=== PATIENT | female | born 1990 | race Caucasian/White ===

== ENCOUNTER 2018-07-09 13:49 | Inpatient (IN) | payer BC ==
--- NOTE | 2018-07-10 11:21 | P.HPOB ---
History of Present Illness H&P Date: 07/10/18 Chief Complaint: Post dates requesting induction. This patient is a pleasant 28-year-old 2 para 0 female estimated date of confinement 07/09/2018 estimated gestational age 40 and one sevenths weeks who presents to labor and delivery for requested two-stage induction secondary to unfavorable cervix and postdates. Patient's care has been uncomplicated. Patient's been very uncomfortable and at this time is requesting delivery. She understands her cervix is unfavorable and therefore would require a two-stage induction of labor with increased risks of section but this is what she desires at this time. Review of Systems Gastrointestinal: Reports heartburn Genitourinary: Reports Menstruation: Reports amenorrhea Past Medical History Past Medical History: No Reported History History of Any Multi-Drug Resistant Organisms: None Reported Past Surgical History: No Surgical Hx Reported Past Anesthesia/Blood Transfusion Reactions: No Reported Reaction Past Psychological History: No Psychological Hx Reported Smoking Status: Never smoker Past Alcohol Use History: None Reported Medications and Allergies Home Medications Medication Instructions Recorded Confirmed Type Ibuprofen [Motrin] 800 mg PO Q6HR PRN #20 tab 12/21/15 Rx Allergies Allergy/AdvReac Type Severity Reaction Status Date / Time No Known Allergies Allergy Verified 12/21/15 04:09 Exam - OBG Physical Exam Abdomen: bowel sounds normal, no diffuse tenderness, no bruit present, no guarding noted, no hepatomegaly, no splenomegaly, no mass Vulva: both: normal Vagina: normal moisture, no discharge Cervix: no lesion (Cervix in the office is closed and thick.), no discharge Uterus: enlarged (Fundal height is 39 cm) Results blood work shows she is oh positive, rubella immune, RPR nonreactive, hepatitis B negative, Glucola was normal, group B strep was negative, ultrasounds on June 05 showed the baby to be vertex 5 lbs. 9 oz. at the 56th percentile. She's had normal anatomy ultrasounds. Assessment and Plan Assessment: This is a pleasant 28-year-old 2 para 0 female 40 and one sevenths weeks gestation who presents to labor and delivery for two-stage induction of labor secondary to postdates an unfavorable cervix. Plan is Cervidil placement to soften the cervix and proceed with Pitocin induction tomorrow morning. Patient and I have discussed the induction process, benefits and risks. (1) Postmaturity , 40-42 weeks gestation Status: Acute Code(s): O48.0 - POST-TERM SNOMED Code(s): 24702653
[2018-07-10] MEDS ORDERED: DINOPROSTONE 10 MG INSERT.ER VAGINAL ONE (16:47)
[2018-07-10 18:05] VITALS: BMI 32.4
[2018-07-11] MEDS ORDERED: METHYLERGONOVINE 0.2 MG/ML 1 ML AMP IM PRN (00:36)
[2018-07-11] MEDS ORDERED: TERBUTALINE 1 MG/ML VIAL SQ PRN (00:36)
[2018-07-11] MEDS ORDERED: LIDOCAINE 1% INJ 10MG/ML (20 ML MDV) SQ PRN (00:36)
[2018-07-11] MEDS ORDERED: OXYTOCIN 10 UNIT/ML 1 ML VIAL IM PRN (00:36)
[2018-07-11] MEDS ORDERED: CARBOPROST TROMETHAMINE 250 MCG/ML 1 ML AMP IM PRN (00:36)
[2018-07-11] MEDS ORDERED: OXYTOCIN 20 UNITS/1000 ML NS 1,000 ML IV SCH ×2 (00:36→13:39)
[2018-07-11] MEDS: LACTATED RINGERS 1,000 ML IV SCH ×3 (01:33→08:38)
[2018-07-11 01:53] LABS: Basophils # (A) 0.1 k/uL (0-0.2); Basophils % (A) 1 %; Eosinophils # (A) 0.5 k/uL (0-0.7); Eosinophils % (A) 3 %; HCT 39.3 % (34.0-46.0); HGB 13.2 gm/dL (11.4-16.0); Lymphocytes # (A) 3.1 k/uL (1.0-4.8); Lymphocytes % (A) 19 %; MCH 31.3 pg (25.0-35.0); MCHC 33.5 g/dL (31.0-37.0); MCV 93.3 fL (80.0-100.0); Mean Platelet Volume 8.6; Monocytes # (A) 0.9 k/uL (0-1.0); Monocytes % (A) 5 %; Neutrophils # (A) 11.5 k/uL (1.3-7.7); Neutrophils % (A) 69 %; Platelet Count 244 k/uL (150-450); RBC 4.21 m/uL (3.80-5.40); RDW 13.9 % (11.5-15.5); WBC 16.6 k/uL (3.8-10.6)
[2018-07-11] MEDS: BUTORPHANOL 1 MG/ML 1 ML VIAL IV PRN ×2 (03:45→07:23)
--- NOTE | 2018-07-11 06:36 | P.PN ---
Progress Note - Text Progress Note Date: 07/11/18 Patient has Cervidil placed last evening. She'll spontaneous rupture in the middle the night and regular contractions. This morning she is 3-4 cm dilated and we'll have Pitocin augmentation of labor.
[2018-07-11] MEDS ORDERED: SODIUM CHLORIDE 0.9% 100 ML BAG ONE (08:05)
[2018-07-11] MEDS ORDERED: fentaNYL (PF) 50 MCG/ML 5 ML AMP ONE (08:05)
[2018-07-11] MEDS ORDERED: ROPIVACAINE 5MG/ML 20ML VIAL ONE (08:05)
[2018-07-11] MEDS ORDERED: WITCH HAZEL 1 EACH MED..PAD TOPICAL PRN (13:39)
[2018-07-11] MEDS ORDERED: BENZOCAINE/MENTHOL SPRAY 1 GM/SPRAY AEROSOL TOPICAL PRN (13:39)
[2018-07-11] MEDS ORDERED: SIMETHICONE 80 MG CHEWABLE PO PRN (13:39)
[2018-07-11] MEDS ORDERED: HYDROCORTISONE 2.5% RECTAL CREAM 30 GM TUBE RECTAL PRN (13:39)
[2018-07-11] MEDS ORDERED: diphenhydrAMINE 25 MG CAP PO PRN (13:39)
[2018-07-11] MEDS ORDERED: LANOLIN CREAM 5 GM TUBE TOPICAL PRN (13:39)
[2018-07-11] MEDS ORDERED: BISACODYL 10 MG SUPP RECTAL PRN (13:39)
[2018-07-11] MEDS ORDERED: ZOLPIDEM 5 MG TAB PO PRN (13:39)
[2018-07-11] MEDS ORDERED: diphenhydrAMINE 50 MG/ML 1 ML VIAL IVP PRN (13:39)
[2018-07-11] MEDS ORDERED: ACETAMINOPHEN TAB 325 MG TAB PO PRN (13:39)
[2018-07-11] MEDS: IBUPROFEN 600 MG TAB PO PRN ×2 (14:04→20:18)
[2018-07-11] MEDS: SENNOSIDES-DOCUSATE SODIUM 1 EACH TAB PO SCH ×2 (14:22→20:19)
--- NOTE | 2018-07-11 18:08 | P.PROBDLV ---
Vaginal Delivery Note - . Vaginal Delivery Note: Normal vaginal delivery viable male infant Apgars 8 and 9 delivery time is 1328 hrs. Please see dictated H&P for intimate details of this patient's admission. Brief summary this is a pleasant 28-year-old 2 para 0 female 40-2/7 weeks gestation who is admitted to labor and delivery last evening for two- stage induction of labor secondary to postdates . Cervidil is placed and patient has spontaneous rupture membranes in the evening. Patient's labor progresses and she has Pitocin augmentation of labor. She does get an epidural for pain control. Patient continues to progress and pushes for approximately 1 hour pushes the head to the perineum. At this time is evident there is not adequate for delivery and therefore a midline episiotomy is made. With this done the patient is able to push the head over the perineum. Mouth and nares are bulb suctioned. There is no evidence of a nuchal cord. We then have delivery the anterior and posterior shoulder and rest this 's body. This is a vigorous viable male Apgars are 8 and 9 delivery time is 1328 hrs. After delivery of the the umbilical cord is allowed to quit pulsating then doubly clamped and transected. Placenta spontaneously delivered intact. Estimated blood loss is 150 mL. Inspection of perineum shows a second- degree laceration was repaired with 3-0 Vicryl usual fashion excellent reapproximation is noted. All counts are correct 3. There are no complications. and mother are stable delivery room.
[2018-07-11 20:41] VITALS: RESP 16
--- NOTE | 2018-07-12 06:45 | P.PNOBGVD ---
Subjective - Subjective Patient reports: Reports appetite normal, Reports voiding normally, Reports pain well controlled, Reports ambulating normally : doing well Objective - Latest Vital Signs Latest vital signs: Vital Signs Temp Pulse Resp BP 07/11/18 20:00 98.0 F 76 16 135/85 07/11/18 15:45 98.8 F 85 18 126/77 07/11/18 15:15 98.6 F 82 18 120/71 07/11/18 14:45 98.1 F 90 18 124/82 07/11/18 14:30 91 121/77 07/11/18 14:15 98.2 F 101 H 18 117/55 07/11/18 14:00 97.8 F 92 18 126/58 07/11/18 13:45 97.6 F 93 18 153/70 Intake and Output 07/11/18 07/11/18 07/12/18 14:59 22:59 06:59 Intake Total 23.15 Output Total 150 Balance -126.85 Intake: Intake, IV Titration 23.15 Amount Oxytocin 20 Units/1000 ml 23.15 Ns 1,000 ml @ 1 MILLIUNIT/MIN 3 mls/hr IV .Q24H AKASH Rx#:[id number] Output: Estimated Blood Loss 150 Other: # Voids 1 - Exam Lungs: bilateral: normal Chest: Normal S1, Normal S2 Extremities: Present: normal Abdomen: Present: normal appearance, soft Uterus: Present: normal, firm Assessment and Plan Assessment: day #1. Patient is resting without complaints wishes to go home. Vital signs are stable she is afebrile. Uterus is firm nontender and she is having normal lochia. My impression that this is a normal course. Plan is to continue routine care discharge home later today. (1) Postmaturity , 40-42 weeks gestation Current Visit: No Status: Acute Code(s): O48.0 - POST-TERM SNOMED Code(s): 95025661
--- NOTE | 2018-07-12 06:50 | P.DS ---
Providers Date of admission: 07/10/18 16:29 Expected date of discharge: 07/12/18 Attending physician: Jalen Francisco Primary care physician: Stated None - Discharge Diagnosis(es) (1) Postmaturity , 40-42 weeks gestation Current Visit: No Status: Acute Hospital Course: Please see dictated H&P for intimate details of this patient's admission. Brief summary this is a pleasant 28-year-old 2 para 0 female who is admitted for two-stage induction secondary to postdates and unfavorable cervix. Patient has Cervidil placed and goes on have a vaginal delivery viable male infant. Please see dictated delivery note. day #1 patient without complaints and wishes to go home. Patient's felt to be stable for discharge home follow up with me in 6 weeks. Procedures: Two-stage induction of labor and normal vaginal delivery Patient Condition at Discharge: Good Plan - Discharge Summary Discharge Rx Participant: No New Discharge Prescriptions: New Ibuprofen [Motrin] 600 mg PO Q6HR PRN #40 tab PRN Reason: Mild Pain Or Fever >= 100.5 No Action 114/Iron A-G/Folate 1 [Prenate Elite Tablet] 1 each PO DAILY Discharge Medication List 114/Iron A-G/Folate 1 [Prenate Elite Tablet] 1 each PO DAILY 07/10/18 [ History] Ibuprofen [Motrin] 600 mg PO Q6HR PRN #40 tab 07/12/18 [Rx] Follow up Appointment(s)/Referral(s): Jalen Francisco MD [STAFF PHYSICIAN] - 08/21/18 3:15 pm Patient Instructions/Handouts: Vaginal Delivery (DC) Activity/Diet/Wound Care/Special Instructions: No intercourse or anything per vagina for 6 weeks. Please call if any fever, chills, excessive vaginal bleeding, and/or abdominal pain. Discharge Disposition: HOME SELF-CARE
[2018-07-12] MEDS: SENNOSIDES-DOCUSATE SODIUM 1 EACH TAB PO SCH (08:00)
[2018-07-12] MEDS: IBUPROFEN 600 MG TAB PO PRN (08:13)
[2018-07-12 10:12] LABS: Basophils # (A) 0.1 k/uL (0-0.2); Basophils % (A) 1 %; Eosinophils # (A) 0.2 k/uL (0-0.7); Eosinophils % (A) 1 %; HCT 33.3 % (34.0-46.0); HGB 11.3 gm/dL (11.4-16.0); Lymphocytes % (A) 16 %; MCH 32.5 pg (25.0-35.0); MCHC 33.9 g/dL (31.0-37.0); MCV 95.8 fL (80.0-100.0); Mean Platelet Volume 8.9; Monocytes # (A) 0.9 k/uL (0-1.0); Monocytes % (A) 5 %; Neutrophils # (A) 14.9 k/uL (1.3-7.7); Neutrophils % (A) 77 %; Platelet Count 180 k/uL (150-450); RBC 3.48 m/uL (3.80-5.40); WBC 19.4 k/uL (3.8-10.6)
[2018-07-12 10:28] LABS: ALT 29 U/L (9-52); AST 37 U/L (14-36); Blood Urea Nitrogen 10 mg/dL (7-17); Uric Acid 5.8 mg/dL (3.7-7.4)
[2018-07-12 12:02] VITALS: TEMP 97.4
[2018-07-12 12:03] VITALS: BP 132/86; PULSE 79
== END 2018-07-12 14:42 | disposition home or self-care (01) | DRG 807 ==
LOC: 4FBP 07-10 16:29
PROVIDERS: ADMIT Obstetrics & Gynecology; ATTEND Obstetrics & Gynecology
PROC: 3E0P7VZ Introduction of Hormone into Female Reproductive, Via Natural or Artificial Opening (ICD-10-PCS; 2018-07-10)
PROC: 10E0XZZ Delivery of Products of Conception, External Approach (ICD-10-PCS; principal; 2018-07-11)
PROC: 0KQM0ZZ Repair Perineum Muscle, Open Approach (ICD-10-PCS; 2018-07-11)
PROC: 00HU33Z Insertion of Infusion Device into Spinal Canal, Percutaneous Approach (ICD-10-PCS; 2018-07-11)
PROC: 3E0R3BZ Introduction of Anesthetic Agent into Spinal Canal, Percutaneous Approach (ICD-10-PCS; 2018-07-11)
PROC: 0W8NXZZ Division of Female Perineum, External Approach (ICD-10-PCS; 2018-07-11)
DX: O48.0 Post-term pregnancy (principal); Z37.0 Single live birth; O70.1 Second degree perineal laceration during delivery; O99.62 Diseases of the digestive system complicating childbirth; R12 Heartburn; Z3A.40 40 weeks gestation of pregnancy
CPT/HCPCS: 82565; 84450; 84460; 84520; 84550; 85025; 86850; 86900; 86901